=== PATIENT | male | born 1985 | race Caucasian/White ===

== ENCOUNTER 2017-03-31 10:46 | Emergency (ER) | payer BC, OTHER ==
[~2017-03-31] VITALS: Ht 170.2 cm; Wt 69.0 kg
[~2017-03-31 10:46] MED LIST: BENZ100 PO
[2017-03-31 10:47] VITALS: BP 154/90; PULSE 85; RESP 17; TEMP 98.4; O2SAT 98
[2017-03-31] MEDS ORDERED: ONDANSETRON HCL 4 MG/2 ML VIAL IVP ONE (12:45)
[2017-03-31] MEDS ORDERED: HYDROmorphone HCL PF 1 MG/ML VIAL IVS ONE (12:45)
[2017-03-31] MEDS ORDERED: SODIUM CHLORIDE 0.9% FLUSH 10 ML FLUSH IVF PRN (12:45)
[2017-03-31] MEDS ORDERED: SODIUM CHLOR 0.9% 1000 ML INJ 1,000 ML IV ONE (12:45)
[2017-03-31] MEDS ORDERED: MORPHINE SULFATE 8 MG/ML INJ ONE (12:47)
[2017-03-31] MEDS ORDERED: ONDANSETRON HCL 4 MG/2 ML VIAL ONE (12:47)
--- NOTE | 2017-03-31 12:55 | PD ---
HPI Chief Complaint: Flank/Kidney Pain Time Seen by Provider: 12:45 Travel History International Travel<30 days: No Contact w/Intl Traveler<30days: No Traveled to known affect area: No History of Present Illness HPI 31-year-old male with PMH of nephrolithiasis presents to the ED for evaluation of approximate 4 hour history of right-sided back pain, flank pain, nausea, vomiting. Patient endorses chills over the past few days but has not measured a fever at home. He denies dysuria. He states this pain is similar to previous episodes of ureterolithiasis. Last kidney stone was approximately 2 months ago. He is followed by a urologist. Denies chronic health problems. Takes no daily medications. PFSH Past Medical History Anxiety: Yes Diminished Hearing: No Social History Alcohol Use: No Tobacco Use: No Substance Use: No Allergies-Medications (Allergen,Severity, Reaction): Coded Allergies: No Known Allergies (Unverified , 08/02/15) Reported Meds & Prescriptions Reported Meds & Active Scripts Active Zofran Odt (Ondansetron Odt) 4 Mg Tab 4 Mg SL Q8HR PRN Percocet (Oxycodone-Acetaminophen) 5-325 mg Tab 1-2 Tab PO Q6H PRN Flomax (Tamsulosin HCl) 0.4 Mg Cap 0.4 Mg PO HS Tessalon Perles (Benzonatate) 100 Mg Cap 100 Mg PO Q8 PRN Review of Systems Except as stated in HPI: all other systems reviewed are Neg Physical Exam Narrative GENERAL: Well-nourished, well-developed male in no acute distress. He is retching into a emesis basin. SKIN: Focused skin assessment warm/dry. HEAD: Normocephalic. EYES: No scleral icterus. No injection or drainage. NECK: Supple, trachea midline. No JVD or lymphadenopathy. CARDIOVASCULAR: Regular rate and rhythm without murmurs, gallops, or rubs. RESPIRATORY: Breath sounds clear and equal bilaterally. No accessory muscle use. GASTROINTESTINAL: Abdomen soft, nondistended. Positive right flank pain. Positive right lower quadrant tenderness to palpation. No palpable masses. Active bowel sounds. MUSCULOSKELETAL: No cyanosis, or edema. BACK: Nontender without obvious deformity. Positive bilateral CVA tenderness, right greater than left. Data Data Last Documented VS Vital Signs Date Time Temp Pulse Resp B/P (MAP) Pulse Ox O2 Delivery O2 Flow Rate FiO2 03/31/17 13:15 89 18 03/31/17 10:47 98.4 154/90 (111) 98 Orders Orders Basic Metabolic Panel (Bmp) (03/31/17 12:44) Complete Blood Count With Diff (03/31/17 12:44) Urinalysis - C+S If Indicated (03/31/17 12:44) Ct Abd/Pel W/O Iv Contrast (03/31/17 12:44) Iv Access Insert/Monitor (03/31/17 12:44) Ondansetron Inj (Zofran Inj) (03/31/17 12:45) Sodium Chloride 0.9% Flush (Ns Flush) (03/31/17 12:45) Hydromorphone Pf Inj (Dilaudid Pf Inj) (03/31/17 12:45) Sodium Chlor 0.9% 1000 Ml Inj (Ns 1000 M (03/31/17 12:45) Ondansetron Inj (Zofran Inj) (03/31/17 12:47) Morphine Inj (Morphine Inj) (03/31/17 12:47) Hydromorphone Pf Inj (Dilaudid Pf Inj) (03/31/17 13:30) Labs Laboratory Tests Test 03/31/17 12:40 White Blood Count 8.9 TH/MM3 Red Blood Count 5.64 MIL/MM3 Hemoglobin 14.8 GM/DL Hematocrit 44.7 % Mean Corpuscular Volume 79.2 FL Mean Corpuscular Hemoglobin 26.2 PG Mean Corpuscular Hemoglobin Concent 33.0 % Red Cell Distribution Width 13.3 % Platelet Count 254 TH/MM3 Mean Platelet Volume 9.9 FL Neutrophils (%) (Auto) 72.1 % Lymphocytes (%) (Auto) 19.1 % Monocytes (%) (Auto) 7.2 % Eosinophils (%) (Auto) 1.2 % Basophils (%) (Auto) 0.4 % Neutrophils # (Auto) 6.4 TH/MM3 Lymphocytes # (Auto) 1.7 TH/MM3 Monocytes # (Auto) 0.6 TH/MM3 Eosinophils # (Auto) 0.1 TH/MM3 Basophils # (Auto) 0.0 TH/MM3 CBC Comment DIFF FINAL Differential Comment Urine Color YELLOW Urine Turbidity HAZY Urine pH 8.0 Urine Specific [place] 1.016 Urine Protein TRACE mg/dL Urine Glucose (UA) NEG mg/dL Urine Ketones NEG mg/dL Urine Occult Blood MOD Urine Nitrite NEG Urine Bilirubin NEG Urine Urobilinogen LESS THAN 2.0 MG/DL Urine Leukocyte Esterase NEG Urine RBC /hpf Urine WBC 3 /hpf Urine Transitional Epithelial Cells <1 /hpf Urine Amorphous Sediment FEW Urine Bacteria FEW /hpf Urine Hyaline Casts 2 /lpf Urine Mucus FEW /lpf Microscopic Urinalysis Comment CULT NOT INDICATED Blood Urea Nitrogen 21 MG/DL Creatinine 1.25 MG/DL Random Glucose 84 MG/DL Calcium Level 8.7 MG/DL Sodium Level 138 MEQ/L Potassium Level 4.2 MEQ/L Chloride Level 102 MEQ/L Carbon Dioxide Level 32.2 MEQ/L Anion Gap 4 MEQ/L Estimat Glomerular Filtration Rate 67 ML/MIN [facility] Medical Decision Making Medical Screen Exam Complete: Yes Emergency Medical Condition: Yes Differential Diagnosis Pyelonephritis versus nephroureterolithiasis versus hydronephrosis versus UTI versus other Narrative Course 31-year-old male with PMH of nephrolithiasis presents to the ED for evaluation of approximate 4 hour history of right-sided back pain, flank pain, nausea, vomiting. Patient endorses chills over the past few days but has not measured a fever at home. He denies dysuria. He states this pain is similar to previous episodes of ureterolithiasis. Vitals reviewed. Patient is retching into a emesis basin on presentation. There is positive right-sided flank and CVA tenderness. IV was established. Patient was administered 4 mg Zofran, 4 mg morphine, 1 L normal saline. On recheck he is still complaining of pain was administered 0.2 mg Dilaudid. No leukocytosis, no elevation of the creatinine, no indication for culture of the UA. CT the abdomen and pelvis reveals a 3 x 6 mm stone in the right mid ureter. Mild hydronephrosis. Several smaller stones are noted in the kidney. Discussed the results of the workup with the patient. He is prescribed Percocet, Flomax, ODT Zofran. He is instructed to take the medications as prescribed, follow up with his urologist this afternoon. He indicated understanding of instructions, is agreeable to the care plan. He is stable and discharged home. Diagnosis Primary Impression: Ureterolithiasis Referrals: Urologist Patient Instructions: General Instructions, Ureteral Stones (ED) Additional Instructions: Rest, hydrate. Take medications as prescribed. Do not drive while taking narcotic pain medications. Follow-up with urologist this afternoon. Return to the ED for any urgent or emergent medical condition. Med/Other Pt SpecificInfo: Prescription(s) given Scripts Ondansetron Odt (Zofran Odt) 4 Mg Tab 4 MG SL Q8HR Y for Nausea/Vomiting, #6 TAB 0 Refills Prov: Mike Barron MD 03/31/17 Oxycodone-Acetaminophen (Percocet) 5-325 mg Tab 1-2 TAB PO Q6H Y for PAIN, #20 TAB 0 Refills Prov: Mike Barron MD 03/31/17 Tamsulosin (Flomax) 0.4 Mg Cap 0.4 MG PO HS for Manage Prostate Problems, #30 CAP 0 Refills Prov: Mike Barron MD 03/31/17 Disposition: 01 DISCHARGE HOME Condition: Stable Zhane Camops Mar 31, 2017 12:55
[2017-03-31 13:20] LABS: AUTOMATED NEUTROPHIL # 6.4 TH/MM3 (1.8-7.7); BASOPHIL % 0.4 % (0.0-2.0); EOSINOPHIL # 0.1 TH/MM3 (0-0.4); EOSINOPHIL % 1.2 % (0.0-4.0); HEMATOCRIT 44.7 % (39.0-51.0); HEMO FLAGS DIFF FINAL; LYMPH % 19.1 % (9.0-44.0); LYMPHOCYTE # 1.7 TH/MM3 (1.0-4.8); MEAN CELL VOLUME 79.2 FL (80.0-100.0); MEAN CORPUSCULAR HEMOGLOBIN 26.2 PG (27.0-34.0); MONO % 7.2 % (0.0-8.0); NEUT % 72.1 % (16.0-70.0); PLATELET COUNT 254 TH/MM3 (150-450); RED BLOOD COUNT 5.64 MIL/MM3 (4.50-5.90); RED CELL DISTRIBUTION WIDTH 13.3 % (11.6-17.2); WHITE BLOOD COUNT 8.9 TH/MM3 (4.0-11.0)
[2017-03-31 13:25] LABS: BACTERIA, URINE FEW /hpf; BLOOD, URINE MOD (NEG); GLUCOSE,URINE NEG (NEG); HYALINE CAST, URINE 2 /lpf (RARE); KETONE, URINE NEG (NEG); MUCUS URINE FEW /lpf (OCC); NITRITE,URINE NEG (NEG); TRANSITIONAL EPI CELLS, URINE <1 /hpf; URINE COLOR YELLOW (YELLW/STRAW)
[2017-03-31 13:27] LABS: COMMENT (UR) CULT NOT INDICATED; CULTURE IF INDICATED CULT NOT INDICATED
[2017-03-31] MEDS ORDERED: HYDROmorphone HCL PF 1 MG/ML VIAL IV PUSH ONE (13:30)
[2017-03-31 13:33] LABS: BICARBONATE 32.2 MEQ/L (21.0-32.0); POTASSIUM 4.2 MEQ/L (3.5-5.1)
--- NOTE | 2017-03-31 14:51 | RADRPT ---
EXAM DATE/TIME: 03/31/2017 13:38 [place] COMPARISON: No previous studies available for comparison. INDICATIONS : Right flank pain today ORAL CONTRAST: No oral contrast ingested. RADIATION DOSE: 5.23 CTDIvol (mGy) MEDICAL HISTORY : None SURGICAL HISTORY : None. ENCOUNTER: Initial ACUITY: 1 day PAIN SCALE: 6/10 LOCATION: Right flank TECHNIQUE: Volumetric scanning of the abdomen and pelvis was performed. Using automated exposure control and ad justment of the mA and/or kV according to patient size, radiation dose was kept as low as reasonably achievable to obtain optimal diagnostic quality images. DICOM format image data is available electro nically for review and comparison. FINDINGS: LOWER LUNGS: The visualized lower lungs are clear. LIVER: Homogeneous density without lesion. There is no dilation of the biliary tree. No calcified gallston es. SPLEEN: Normal size without lesion. PANCREAS: Within normal limits. KIDNEYS: There is a 3 x 6 mm calcified calculus in the mid right ureter with associated moderate right hydrone phrosis. There are multiple additional calcified calyceal calculi in the right kidney measuring appro ximately 3-4 mm. There are also scattered left renal calcified calyceal calculi measuring approximate ly 2-5 mm. ADRENAL GLANDS: Within normal limits. VASCULAR: There is no aortic aneurysm. BOWEL/MESENTERY: The stomach, small bowel, and colon demonstrate no acute abnormality. There is no free intraperitone al air or fluid. ABDOMINAL WALL: Within normal limits. RETROPERITONEUM: There is no lymphadenopathy. BLADDER: No wall thickening or mass. REPRODUCTIVE: Within normal limits. INGUINAL: There is no lymphadenopathy or hernia. MUSCULOSKELETAL: Within normal limits for patient age. CONCLUSION: 1. 3 x 6 mm calcified calculus in the mid right ureter with associated moderate right-sided hydroneph rosis. 2. Multiple additional bilateral nonobstructing calcified calyceal calculi measuring 2-5 mm. Zach Palacios MD on March 31, 2017 at 14:21 Board Certified Radiologist. This report was verified electronically.
[2017-03-31] MEDS ORDERED: TAMS5CAP PO (14:58)
[2017-03-31] MEDS ORDERED: PERC5TAB12 PO (14:58)
[2017-03-31] MEDS ORDERED: ZOFR4TAB3 SL (14:58)
== END 2017-03-31 15:22 | disposition home or self-care (01) ==
LOC: NEPD 10:46
DX: N13.2 Hydronephrosis with renal and ureteral calculous obstruction (principal); Z87.442 Personal history of urinary calculi
CPT/HCPCS: 74176; 80048; 81001; 85025; 96374; 96375; 99285; J1170; J2270; J2405; J7030